=== PATIENT | female | born 1960 | race Caucasian/White ===

== ENCOUNTER 2023-12-01 08:28 | Day surgery (SDC) | payer MEDICARE ==
[~2023-12-01] VITALS: Ht 170.2 cm; Wt 106.6 kg
[~2023-12-01 08:28] MED LIST: BACLOFEN10 MG PO; BACTRIM DS1 TAB OR; BACTRIM DS1 TAB PO; CANNABIS PO; CHILD ASA LS81 MG PO; CYMBALTA20 MG PO; ECK ASPIRIN325 MG OR; ENTRESTO 49-511 TAB PO; FLAGYL500 MG OR; FLUTICASONE50 MCG; GABAPENTIN300 MG PO; KEFLEX500 MG OR; LIPITOR40 M1 PO; LORICET PO; LOTRISONE CREAM15 G1 EX; MAGNESIUM-OX400 MG PO; MULTI VIT PO; NEURONTIN100 MG OR; NO HOME MEDS; NU IRON OR; PERCOCET 5/325M1 TAB OR; POTASSIUM GLUC595 MG PO; RIFADIN300 MG OR; ROSUVASTATIN CA10 MG PO; TRAMADOL HCL50 MG PO; TYLENOL # 31 TA1 PO; VANCOMYCIN IV; VITAMIN B COMPL1 TAB PO; VITAMIN C500 MG OR; [UNRECOGNIZED DRUG - OTHER] OR
[2023-12-01] MEDS ORDERED: FAMOTIDINE 10MG/ML 2ML SDV IV ONE (09:06)
[2023-12-01] MEDS ORDERED: LACTATED RINGER'S 1,000 ML IV ONE (09:07)
[2023-12-01 10:45] VITALS: BP 137/79
[2023-12-01] MEDS ORDERED: GLYCOPYRROLATE 0.2 MG/ML IV ONE (15:51)
[2023-12-01] MEDS ORDERED: PROPOFOL 200 MG/20 ML VIAL IV ONE (15:51)
[2023-12-01] MEDS ORDERED: LIDOCAINE HCL 2% 2ML SDV IV ONE (15:51)
== END 2023-12-01 11:05 | disposition home or self-care (01) ==
LOC: ENDO 08:28
PROVIDERS: ATTEND Surgery
PROC: 0DBM8ZX Excision of Descending Colon, Via Natural or Artificial Opening Endoscopic, Diagnostic (ICD-10-PCS; principal; 2023-12-01)
PROC: 0DBL8ZX Excision of Transverse Colon, Via Natural or Artificial Opening Endoscopic, Diagnostic (ICD-10-PCS; 2023-12-01)
PROC: 0DBN8ZX Excision of Sigmoid Colon, Via Natural or Artificial Opening Endoscopic, Diagnostic (ICD-10-PCS; 2023-12-01)
DX: Z12.11 Encounter for screening for malignant neoplasm of colon (principal); D12.4 Benign neoplasm of descending colon; D12.5 Benign neoplasm of sigmoid colon; D12.3 Benign neoplasm of transverse colon; K57.30 Diverticulosis of large intestine without perforation or abscess without bleeding; K64.8 Other hemorrhoids; I50.9 Heart failure, unspecified